=== PATIENT | female | born 1995 | race Caucasian/White ===

== ENCOUNTER 2021-08-28 11:56 | Emergency (ER) | payer BC, MEDICAID, SELFPAY ==
[2021-08-28 11:58] VITALS: BP 133/80; PULSE 110; RESP 16; TEMP 36.7; O2SAT 100; BMI 19.8
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
--- NOTE | 2021-08-28 12:15 | USR_ITS ---
PROCEDURE INFORMATION: Exam: US First Trimester, Transabdominal and US , Transvaginal Exam date and time: 08/28/2021 12:33 PM Age: 26 years old Clinical indication: complicated by abdominal or pelvic pain; Lower; First trimester (<14 weeks 0 days); Gestational age or lmp: 12w6d; ; Additional info: 12 wk US TECHNIQUE: Imaging protocol: Real-time transabdominal obstetrical ultrasound of the maternal pelvis and a first trimester , less than 14 weeks 0 days, with image documentation. Transvaginal imaging was used for better evaluation of the fetus, adnexa, and/or cervix. COMPARISON: US OB <= 14 weeks fetus [facility] 08/09/2021 2:18 PM FINDINGS: Gestation: Single live IUP. presentation: Breech presentation. Embryonic/ heart rate: 160 bpm. Extra-embryonic membranes/Placenta: Normal echotexture of the placenta. No evidence of abruption. No previa. Amniotic fluid: Amniotic fluid volume qualitatively normal. BIOMETRY: Gestational age (AUA): 12 weeks 6 days (DARLYN March 06, 2022) Sammy Martinez-Rump length (CRL): Sammy Martinez-rump length average 6.5 cm MATERNAL: Uterus: Unremarkable. Cervix: The cervix measures 3.7 cm in length and is closed. Right ovary/adnexa: Unremarkable ovary. Left ovary/adnexa: Unremarkable ovary. Intraperitoneal space: No intraperitoneal free fluid. US/US OB <= 14 weeks fetus [id number] IMPRESSION: Single live IUP with EGA 12 weeks 6 days, consistent with reported dates. No acute findings.
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
[2021-08-28 12:20] VITALS: BP 133/80; PULSE 115; RESP 16; O2SAT 100
[2021-08-28 12:47] VITALS: BP 133/80; PULSE 115; RESP 16; TEMP 36.7; O2SAT 100
[2021-08-28 12:58] LABS: Bilirubin Urine Neg (Negative); Blood Urine Neg (Negative); Glucose Urine UA Norm (Normal); Ketones Urine Negative (Negative); Nitrate Urine Positive (Negative); Protein Urine Neg (Negative); Urine Appearance Cloudy (CLEAR); Urine Color Yellow (Yellow); pH Urine 7 (5-7)
[2021-08-28 12:59] LABS: Add Urine Microscopic? YES; Leukocyte Esterase Urine 2+ (Negative); Urobilinogen Urine Norm (Negative)
[2021-08-28 13:00] LABS: Add Urine Culture? No; Bacteria Urine 4+ /hpf; Squamous Epithelial Cell Urine 25-40 /hpf (0-5); WBC Urine 25-40 /hpf (0-5)
[2021-08-28 13:30] LABS: Basophils # 0.1 10^3/uL (0.0-0.1); Basophils % 0.5 %; Eosinophils # 0.4 10^3/uL (0.0-0.8); Eosinophils % 4.1 %; Hemoglobin 11.3 g/dL (11.5-15.3); Lymphocytes # 2.5 10^3/uL (0.8-4.8); Lymphocytes % 27.1 %; Mean Corpuscular HGB Conc 32.3 g/dL (30.0-36.0); Mean Corpuscular Hemoglobin 30.1 pg (28.0-34.0); Mean Corpuscular Volume 93.3 fl (81-99); Mean Platelet Volume 9.6 fL (7.4-10.4); Monocytes # 0.5 10^3/uL (0.2-0.9); Monocytes % 4.9 %; Nucleated Red Blood Cells % 0 %; Platelet Count 233 10^3/cmm (130-400); Red Blood Count 3.75 10^6/uL (4.1-5.3); Red Cell Distribution Width 12.9 % (12.1-15.1); White Blood Count 9.2 10^3/uL (4.0-10.0)
[2021-08-28 13:52] LABS: Alanine Aminotransferase 9 U/L (0-33); Albumin Level 4.1 g/dL (3.5-5.2); Alkaline Phosphatase 39 IU/L (35-105); Anion Gap 13.6 (5-19); Aspartate Amino Transferase 15 U/L (0-32); Blood Urea Nitrogen 8 mg/dL (6-20); Calcium 9.1 mg/dL (8.5-10.5); Carbon Dioxide 23 mmol/L (22-29); Chloride 103 mmol/L (98-107); Globulin 2.7 g/dL (1.3-4.6); Glomerular Filtration Rate 271.1 mL/min (90-130); Glucose 80 mg/dL (65-115); Osmolality Calculated 279 mOsm/kg (285-295); Potassium 3.6 mmol/L (3.5-5.1); Sodium 136 mmol/L (136-145); Total Bilirubin 0.4 mg/dL (0.15-1.2); Total Protein 6.8 g/dL (6.6-8.7)
[2021-08-28 14:23] LABS: Add Urine Microscopic? YES; Bilirubin Urine Neg (Negative); Blood Urine Neg (Negative); Glucose Urine UA Norm (Normal); Ketones Urine 1+ (Negative); Leukocyte Esterase Urine Negative (Negative); Nitrate Urine Negative (Negative); Protein Urine Neg (Negative); Specific Gravity, Urine 1.015 (1.005-1.030); Sulfosalicylic Acid Urine Negative (Negative); Urine Appearance Cloudy (CLEAR); Urine Color Yellow (Yellow); Urobilinogen Urine Norm (Negative); pH Urine 8 (5-7)
[2021-08-28 14:25] LABS: Bacteria Urine 4+ /hpf; Mucus Urine TRACE /hpf; Squamous Epithelial Cell Urine RARE /hpf (0-5)
[2021-08-28 14:26] LABS: Add Urine Culture? Yes
[2021-08-28 15:14] VITALS: BP 133/80; PULSE 115; RESP 16; TEMP 36.7; O2SAT 100
== END 2021-08-28 15:15 | disposition home or self-care (01) ==
PROVIDERS: Emergency Provider Family Medicine; PCP Obstetrics & Gynecology
DX: Z04.1 Encounter for examination and observation following transport accident (principal); O26.892 Other specified pregnancy related conditions, second trimester; Z3A.12 12 weeks gestation of pregnancy
CPT/HCPCS: 51701; 70450; 71045; 72125; 76801; 80053; 81001; 85025; 87077; 87086; 87186; 99284

== ENCOUNTER → 2021-08-31 15:31 | Outpatient (BNVA) | payer BC, MEDICAID, SELFPAY | PROVIDERS: PCP Obstetrics & Gynecology; Visit Provider Obstetrics & Gynecology | DX: Z34.01 Encounter for supervision of normal first pregnancy, first trimester (principal); Z12.4 Encounter for screening for malignant neoplasm of cervix | CPT/HCPCS: 80307; 81000; 85027; 86592; 86762; 86803; 86850; 86900; 87077; 87086; 87184; 87340; 87491; 87591; 88175 ==

== ENCOUNTER → 2021-09-20 08:35 | Outpatient (BNVA) | payer BC, MEDICAID, SELFPAY | PROVIDERS: PCP Obstetrics & Gynecology; Visit Provider Obstetrics & Gynecology | DX: O98.819 Other maternal infectious and parasitic diseases complicating pregnancy, unspecified trimester (principal); B96.20 Unspecified Escherichia coli [E. coli] as the cause of diseases classified elsewhere; Z3A.00 Weeks of gestation of pregnancy not specified | CPT/HCPCS: 81000; 87086 ==

== ENCOUNTER → 2021-09-24 15:42 | Outpatient (BNVA) | payer BC, MEDICAID, SELFPAY | PROVIDERS: PCP Obstetrics & Gynecology; Visit Provider Social Worker | DX: F41.1 Generalized anxiety disorder (principal); F33.2 Major depressive disorder, recurrent severe without psychotic features | CPT/HCPCS: 90837 ==

== ENCOUNTER → 2021-10-08 15:50 | Outpatient (BNVA) | payer BC, MEDICAID, SELFPAY | PROVIDERS: PCP Obstetrics & Gynecology; Visit Provider Social Worker | DX: F41.1 Generalized anxiety disorder (principal); F33.2 Major depressive disorder, recurrent severe without psychotic features | CPT/HCPCS: 90834 ==

== ENCOUNTER → 2021-10-20 08:34 | Outpatient (BNVA) | payer BC, OTHER, SELFPAY | PROVIDERS: PCP Obstetrics & Gynecology; Visit Provider Obstetrics & Gynecology | DX: Z34.90 Encounter for supervision of normal pregnancy, unspecified, unspecified trimester (principal) | CPT/HCPCS: 76805 ==

== ENCOUNTER → 2021-10-22 08:20 | Outpatient (BNVA) | payer BC, MEDICAID, SELFPAY | PROVIDERS: PCP Obstetrics & Gynecology; Visit Provider Obstetrics & Gynecology | DX: Z34.90 Encounter for supervision of normal pregnancy, unspecified, unspecified trimester (principal) | CPT/HCPCS: 81000 ==

== ENCOUNTER → 2021-11-22 09:11 | Outpatient (BNVA) | payer BC, SELFPAY | PROVIDERS: PCP Obstetrics & Gynecology; Visit Provider Obstetrics & Gynecology | DX: Z34.82 Encounter for supervision of other normal pregnancy, second trimester (principal) | CPT/HCPCS: 81000; 82950 ==

== ENCOUNTER → 2021-11-29 10:49 | Outpatient (BNVA) | payer BC, MEDICAID, SELFPAY | PROVIDERS: PCP Obstetrics & Gynecology; Visit Provider Obstetrics & Gynecology | DX: Z36.2 Encounter for other antenatal screening follow-up (principal) | CPT/HCPCS: 76816 ==

== ENCOUNTER → 2022-01-10 13:23 | Outpatient (BNVA) | payer BC, SELFPAY | PROVIDERS: PCP Obstetrics & Gynecology; Visit Provider Obstetrics & Gynecology | DX: Z34.03 Encounter for supervision of normal first pregnancy, third trimester (principal); F12.11 Cannabis abuse, in remission | CPT/HCPCS: 80307; 81000; 85027 ==

== ENCOUNTER → 2022-01-28 13:42 | Outpatient (BNVA) | payer BC, SELFPAY | PROVIDERS: PCP Obstetrics & Gynecology; Visit Provider Nurse Practitioner Women's Health | DX: Z34.00 Encounter for supervision of normal first pregnancy, unspecified trimester (principal) | CPT/HCPCS: 80307; 81000 ==

== ENCOUNTER → 2022-02-07 13:23 | Outpatient (BNVA) | payer BC, SELFPAY | PROVIDERS: PCP Obstetrics & Gynecology; Visit Provider Obstetrics & Gynecology | DX: O99.019 Anemia complicating pregnancy, unspecified trimester (principal); D64.9 Anemia, unspecified; Z3A.00 Weeks of gestation of pregnancy not specified | CPT/HCPCS: 81000; 85025; 87081 ==

== ENCOUNTER → 2022-02-21 16:00 | Outpatient (BNVA) | payer BC, MEDICAID, SELFPAY | PROVIDERS: PCP Obstetrics & Gynecology; Visit Provider Obstetrics & Gynecology | DX: O99.019 Anemia complicating pregnancy, unspecified trimester (principal); D64.9 Anemia, unspecified; Z3A.00 Weeks of gestation of pregnancy not specified | CPT/HCPCS: 81000 ==

== ENCOUNTER → 2022-02-28 15:00 | Outpatient (BNVA) | payer BC, MEDICAID, SELFPAY | PROVIDERS: PCP Obstetrics & Gynecology; Visit Provider Obstetrics & Gynecology | DX: Z34.90 Encounter for supervision of normal pregnancy, unspecified, unspecified trimester (principal) | CPT/HCPCS: 81000 ==

== ENCOUNTER 2022-03-08 07:21 | Inpatient (IN) | payer BC, MEDICAID, SELFPAY ==
[2022-03-07] VITALS (38 sets, daily range): BP systolic 110–164; BP diastolic 60–90; PULSE 68–94; RESP 17–18; TEMP 36.6; O2SAT 98–100; BMI 24.9
[2022-03-07 18:25] LABS: Basophils % 0.4 %; Eosinophils # 0.1 10^3/uL (0.0-0.8); Hematocrit 31.3 % (37.0-47.0); Hemoglobin 9.8 g/dL (11.5-15.3); Lymphocytes # 1.7 10^3/uL (0.8-4.8); Lymphocytes % 16.3 %; Mean Corpuscular HGB Conc 31.3 g/dL (30.0-36.0); Mean Corpuscular Hemoglobin 27.2 pg (28.0-34.0); Mean Corpuscular Volume 86.9 fl (81-99); Mean Platelet Volume 12.8 fL (7.4-10.4); Monocytes # 0.4 10^3/uL (0.2-0.9); Neutrophils # 8.12 10^3/uL (1.8-7.7); Neutrophils % 77.5 %; Nucleated Red Blood Cells % 0 %; Platelet Count 203 10^3/cmm (130-400); Red Cell Distribution Width 13.8 % (12.1-15.1); White Blood Count 10.5 10^3/uL (4.0-10.0)
[2022-03-07] MEDS: dextrose 5%-lactated ringers 1,000 ML 125 ML IV (18:32)
[2022-03-07] MEDS: oxytocin 30 UNIT/500 ML BAG IV (18:32)
[2022-03-07] MEDS: acetaminophen 325 mg Tablet 650 MG PO (19:11)
[2022-03-07] MEDS: fentaNYL 50 mcg/mL INJ 2mL IVP ×2 (20:53→21:54)
[2022-03-07] MEDS: lactated ringers 1,000 ML 999 ML IV (22:07)
--- NOTE | 2022-03-07 23:10 | ANES.PREANE2 ---
Pre-Anesthetic Assessment Height/Weight: Height 1.73 m Weight 74.389 kg Pulse Resp BP Pulse Ox O2 Del Method 72 18 129/86 100 03/07/22 23:33 03/07/22 21:54 03/07/22 23:33 03/07/22 23:32 03/07/22 17:16 Preop Diagnosis: IUP epidural Familial anesthetic complications: none Was Beta Susan taken within 24 hours: N/A Was Clonidine taken within 24 hours: N/A Last Intake: 19:00 Social No alcohol and No tobacco Exam alert and oriented x 3 Airway Submandibular: within normal limits Cervical ROM: within normal limits Mallampati: Class II Dentition: full History/ROS No significant complaints Pulmonary None reported CV/HEM None reported None reported Hepatic None reported GI None reported Metabolic None reported Musc/skel None reported Neuropsych None reported Anesthetic Plan ASA status: 2 Anesthesia: Anesthesia Evaluation and Regional (specify below) Risk of > 500 ml blood loss (7ml/kg in children): No Medications/Allergies Home Medications Medication Instructions Recorded Confirmed Last Taken Type diphenhydramine HCl 25 mg capsule 25 mg PO .at hs PRN Sleep 08/31/21 03/07/22 Unknown History (Benadryl) prenat.vits,anthony,ebr-irpw-dclto 1 tab PO DAILY 08/31/21 03/07/22 Unknown History acetaminophen 325 mg tablet 650 mg PO QID PRN Pain 09/20/21 03/07/22 Unknown History (Tylenol) ferrous sulfate 325 mg (65 mg 325 mg PO BID #60 tabs 01/11/22 03/07/22 Unknown Rx iron) tablet,delayed release Allergies Allergy/AdvReac Type Severity Reaction Status Date / Time No Known Allergies Allergy Verified 03/07/22 19:55 Current Medications Generic Name Dose Route Start Last Admin Trade Name Freq PRN Reason Stop Dose Admin Acetaminophen 650 mg 03/07/22 17:38 03/07/22 19:11 Acetaminophen 325 Mg Tablet PO 650 mg Q6H PRN Administration Mild pain or temp > 100.4 Fentanyl 25 - 100 mcg 03/07/22 17:38 03/07/22 21:54 Fentanyl 50 Mcg/Ml Inj 2ml IVP 50 mcg Q1H PRN Administration SEVERE PAIN Lactated Ringer's 1,000 mls @ 999 mls/hr 03/07/22 17:38 03/07/22 22:07 Lactated Ringers IV 999 mls/hr .Q1H1M PRN Administration Per L&D Rescitation Protocol Dextrose/Lactated Ringer's 1,000 mls @ 125 mls/hr 03/07/22 17:45 03/07/22 18:32 Dextrose 5%-Lactated Ringers IV 125 mls/hr .Q8H [place] Administration Oxytocin 30 unit in 500 mls @ 1 mls/hr 03/07/22 17:45 03/07/22 20:45 Pitocin IV 5 milliunit/min .Q24H [place] 5 mls/hr Titration Protocol 1 MILLIUNIT/MIN Ropivacaine 200 mg in 100 mls @ 6 mls/hr 03/07/22 22:30 03/07/22 23:14 Naropin Premix EPIDURAL 13 mls/hr .[id number] [place] Administration Ondansetron HCl 4 mg 03/07/22 17:38 03/07/22 23:14 Ondansetron 2 Mg/Ml Sdv 2 Ml IVP 4 mg Q4H PRN Administration NAUSEA AND VOMITING PFSH Anesthesia Medical History (Updated 01/28/22 @ 13:33 by Sofie Bettencourt APN, GABI) Psychiatric care Surgical History (Updated 01/28/22 @ 13:33 by Sofie Bettencourt APN, GABI) H/O oral surgery wisdom teeth extraction Family History Grandfather Diabetes paternal Stroke maternal and paternal Father Hypertension Grandmother No problems noted. Mother Thyroid condition Denies family history of Colon cancer Ovarian cancer Clotting disorder Hyperlipidemia Breast cancer Anesthesia complication Bleeding disorder Uterine cancer Social History Smoking and tobacco status: former smoker Last alcohol use date: 04/16/21 Female Reproductive History : 2 Data Anesthesia 03/07/22 17:55 Short CBC 03/07/22 Range/Units 17:55 WBC 10.5 H (4.0-10.0) 10^3/uL Hgb 9.8 L (11.5-15.3) g/dL Hct 31.3 L (37.0-47.0) % MCV 86.9 (81-99) fl Plt Count 203 (130-400) 10^3/cmm Neut % (Auto) 77.5 % Neut # (Auto) 8.12 H (1.8-7.7) 10^3/uL Cardiac Studies: No Data to Display
[2022-03-07] MEDS: ondansetron 2 mg/ML SDV 2 mL 4 MG IVP (23:14)
[2022-03-07 23:22] LABS: Amphetamines Screen Urine Negative (Negative); Barbiturates Screen Urine Negative (Negative); Benzodiazepines Screen Urine Negative (Negative); Cocaine Screen Urine Negative (Negative); Opiate Screen Urine Negative (Negative); PCP Screen Urine Negative (Negative); THC Screen Urine Negative (Negative)
--- NOTE | 2022-03-07 23:36 | ANES.PROC ---
Anesthesia Procedures Procedure/Date: 03/07/22 epidural Epidural: Time Out Performed: Yes Consents Signed: Procedure Consent Consent: from patient, risks and benefits reviewed and patient agrees to proceed Lumbar Level: L3-L4 Epidural position: sitting Epidural procedure: sterile prep of area, 1% lidocaine to numb the area, 18 g needle, neg for paresthesia, test dose given, 1.5% xylocaine 1:200k epi, placed PCEA, no systemic response, L.U.D. no apparent complications and 0.2% Ropiavacaine @ mls/hr (13) Additional Comments: BRANDT at 4.5, taped at 15 at skin
[2022-03-08] VITALS (110 sets, daily range): BP systolic 106–151; BP diastolic 57–90; PULSE 64–136; RESP 16–18; TEMP 36.2–38.7; O2SAT 98
[2022-03-08] MEDS: benzocaine-menthol 78 gm Canister 1 SPRAY TOPICAL (02:31)
[2022-03-08] MEDS: dextrose 5%-lactated ringers 1,000 ML 125 ML IV (04:38)
--- NOTE | 2022-03-08 08:08 | PM.OPHPUD ---
Labor & Delivery H&P Update Date of Procedure: March 08, 2022 Date H&P Performed: 03/07/22 H&P update information: I have reviewed H&P completed within last 30 days, I have examined patient prior to procedure and No changes to prior documentation Admission Diagnosis: Preop diagnosis: IUP
[2022-03-08] MEDS: miSOPROStol 200 mcg Tablet 800 MCG PR (12:35)
[2022-03-08] MEDS: fentaNYL 50 mcg/mL INJ 2mL IVP (12:35)
--- NOTE | 2022-03-08 12:39 | PM.DELIVERY ---
Delivery Note: Date of delivery: March 08, 2022 Pre-delivery diagnoses: Term Post-delivery diagnoses: delivered Procedure: Spontaneous vaginal delivery Op report anesthesia: Epidural Delivering Physician: Nathan Dean MD Estimated blood loss (mL): 600 Delivery: The patient was noted to be complete and pushing, so was placed in the dorsal lithotomy position, prepped and draped in the usual sterile fashion for a vaginal delivery. Pt. Noted to have epidural anesthesia. At 1221 the patient delivered a viable 39 weeks male infant weighing 3405 g with scores of 8 and 9 at one and five minutes, respectively. The vertex was delivered spontaneously over intact perineum. The patient was asked to push and the head delivered spontaneously in the JOSE position, over an intact perineum. A nuchal cord was checked and none noted. The anterior shoulder delivered easily and the posterior shoulder followed. The remainder of the was easily delivered and the oropharynx and nasopharynx was bulb suctioned. The infant was noted to have spontaneous cry and spontaneous movement of all four extremities. The cord was clamped x 2 and cut and noted to have 2 arteries and one vein. The infant was passed to the mother's at the where nursing personnel were in attendance. Cord Blood sample was then obtained. The placenta delivered intact with manual extraction and the uterus was explored. 20 units of Pitocin was placed in the IV bag to firm the uterus. Then 800 mg of misoprostol were placed rectally. Examination of the cervix and vaginal vault did not reveal any lacerations. A vaginal pack was then placed. Examination of the perineum showed no laceration. The vaginal pack was then removed. The patient tolerated this procedure well, and recovered in L&D with her infant in their LDR room. All sponge and needle counts were correct. Post-Delivery Status: Good and stable History History History 2 Term 0 0 Miscarriages/Ectopic 1 Living Children 0 Coding Level of Care Code Acute Supervisor Coating for Chg Fwd
[2022-03-08] MEDS: HYDROcodone-acetaminophen 5-325 mg Tablet PO ×2 (13:35→21:57)
[2022-03-08] MEDS: ibuprofen 800 mg tablet PO ×2 (17:07→21:57)
[2022-03-08] MEDS: docusate sodium 100 mg Capsule PO (17:07)
[2022-03-09] VITALS (11 sets, daily range): BP systolic 114–134; BP diastolic 70–89; PULSE 75–105; RESP 16–18; TEMP 36.5–36.9; O2SAT 98–100
[2022-03-09 03:03] LABS: Hematocrit 24.9 % (37.0-47.0); Hemoglobin 7.7 g/dL (11.5-15.3); Mean Corpuscular HGB Conc 30.9 g/dL (30.0-36.0); Mean Corpuscular Hemoglobin 27.1 pg (28.0-34.0); Mean Corpuscular Volume 87.7 fl (81-99); Mean Platelet Volume 12.6 fL (7.4-10.4); Platelet Count 199 10^3/cmm (130-400); Red Blood Count 2.84 10^6/uL (4.1-5.3); Red Cell Distribution Width 14.3 % (12.1-15.1)
--- NOTE | 2022-03-09 08:07 | PM.OBGYDC ---
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 Soledad Mccallum 27-year-old female G2, P0 with an EGA at 39 weeks. Admitted to labor and delivery for induction but she was on early labor. Which was augmented with oxytocin and progressed to have a spontaneous vaginal delivery without complications. observation has been uneventful. Afebrile and hemodynamically stable day 1. Tolerating diet well. Ambulating without difficulty. Information Peripartum Data: Delivery Method: Vaginal Physical Exam Narrative: GA; alert and oriented x 3 HEENT: normal Breasts: engorged Nipples - skin intact Lungs; clear to auscultation Heart: regular rhythm, no murmurs. Abd: Appropriately tender. BS+. Uterine fundus below umbilicus. No Fundal Tenderness. Perineum: normal lochia. Extremities: no edema, no cyanosis, no tenderness. Urinary Catheter Management: Calderon: Cath Placed During This Visit: yes, but has since been removed by the nurse Reason for Continuing Indwelling Catheter: Decision to DC Catheter Urinary Catheter Date of Insertion: 03/08/22 Urinary Catheter Time of Insertion: 00:30 Date Urinary Catheter Removed: 03/08/22 Time Urinary Catheter Discontinued: 10:58 History History History 2 Term 0 0 Miscarriages/Ectopic 1 Living Children 0 Discharge Data Studies Completed and Pending Laboratory Results WBC 21.0 10^3/uL (4.0-10.0) H 03/09/22 02:45 RBC 2.84 10^6/uL (4.1-5.3) L 03/09/22 02:45 Hgb 7.7 g/dL (11.5-15.3) L 03/09/22 02:45 Hct 24.9 % (37.0-47.0) L 03/09/22 02:45 MCV 87.7 fl (81-99) 03/09/22 02:45 MCH 27.1 pg (28.0-34.0) L 03/09/22 02:45 MCHC 30.9 g/dL (30.0-36.0) 03/09/22 02:45 RDW 14.3 % (12.1-15.1) 03/09/22 02:45 Plt Count 199 10^3/cmm (130-400) 03/09/22 02:45 MPV 12.6 fL (7.4-10.4) H 03/09/22 02:45 Neut % (Auto) 77.5 % 03/07/22 17:55 Lymph % (Auto) 16.3 % 03/07/22 17:55 [place] % (Auto) 4.0 % 03/07/22 17:55 Eos % (Auto) 1.0 % 03/07/22 17:55 Baso % (Auto) 0.4 % 03/07/22 17:55 Neut # (Auto) 8.12 10^3/uL (1.8-7.7) H 03/07/22 17:55 Lymph # (Auto) 1.7 10^3/uL (0.8-4.8) 03/07/22 17:55 [place] # (Auto) 0.4 10^3/uL (0.2-0.9) 03/07/22 17:55 Eos # (Auto) 0.1 10^3/uL (0.0-0.8) 03/07/22 17:55 Baso # (Auto) 0.0 10^3/uL (0.0-0.1) 03/07/22 17:55 Nucleated RBC % (auto) 0 % 03/07/22 17:55 Nucleated RBCs # 0.0 /100WBC 03/07/22 17:55 Urine Opiates Screen Negative ng/mL (Negative) 03/07/22 23:00 Ur Barbiturates Screen Negative ng/mL (Negative) 03/07/22 23:00 Ur Phencyclidine Scrn Negative ng/mL (Negative) 03/07/22 23:00 Ur Amphetamines Screen Negative ng/mL (Negative) 03/07/22 23:00 U Benzodiazepines Scrn Negative ng/mL (Negative) 03/07/22 23:00 Urine Cocaine Screen Negative ng/mL (Negative) 03/07/22 23:00 U Marijuana (THC) Screen Negative ng/mL (Negative) 03/07/22 23:00 Vitals Last Vital Signs Temp 97.8 F 11/22/22 22:00 Pulse 101 H 03/09/22 04:50 Resp 16 03/09/22 04:50 BP 114/70 03/09/22 04:50 Pulse Ox 98 03/09/22 04:50 O2 Del Method 03/09/22 04:50 Discharge Plan Discharge Patient Disposition: Home Condition: Stable Prescriptions: New acetaminophen 325 mg capsule 325 mg PO Q4H PRN (Reason: fever or pain) Qty: 60 0RF docusate sodium [Colace] 100 mg capsule 100 mg PO BID Qty: 60 0RF ferrous sulfate [Iron (ferrous sulfate)] 325 mg (65 mg iron) tablet 325 mg PO BID Qty: 60 0RF ibuprofen 800 mg tablet 800 mg PO TID PRN (Reason: pain) Qty: 60 0RF Continued prenat.vits,anthony,zzd-[id number] Tablet 1 tab PO DAILY diphenhydramine HCl [Benadryl] 25 mg capsule 25 mg PO .at hs PRN (Reason: Sleep) Label Comments: 1-2 capsules at hs acetaminophen [Tylenol] 325 mg tablet 650 mg PO QID PRN (Reason: Pain) ferrous sulfate 325 mg (65 mg iron) tablet,delayed release (DR/EC) 325 mg PO BID Qty: 60 3RF Discharge Orders: Discharge Order (Routine); Ordered 03/09/22 Ordered By: Nathan Dean Referrals: Nathan Dean MD [Primary Care Provider] - 6 Weeks (* [facility] call [facility] first thing Monday or Monday morning to make your 6 week appointment) Discharge Diet: Advance as tolerated Discharge Activity: Limit activity as instructed Patient Instructions: Depression (DC), Bleeding (DC), Preeclampsia and Eclampsia After Delivery (GEN), OB Discharge Report, OB Food/Drug Interaction Guide, OB Home Care Instructions, OB Care at Home, Opioid Safety, OB Home Care, OB Proud Parent Packet, OB Vaginal Deliveries - [facility] Activity Restrictions/Additional Instructions: 1. Please call [facility] on next working day to make your appointment in 6 weeks. 2. Please stay home until you come back to the clinic on first post-operative check up. 3. Please follow instructions on your medications CAREFULLY. 4. If you have abdominal incision, do not cover it unless dressing is necessary because of drainage. OK to shower, but avoid bath. Leave steri-strips until they fall off. If they are still on one week after surgery, you may remove them. 5. If you had vaginal surgery or vaginal repair, Dr. Dean may instruct you to take SITZ bath. 6. Yellow, blood tinged odorous vaginal discharge is usually normal after hysterectomy or vaginal surgeries. 7. No sexual intercourse, tampons, or douches until you are completely released from the post-operative care. 8. Avoid constipation by eating right and maybe using some Metamucil or Milk of Magnesia. 9. All prescription refills are given during the working hours. Please do no wait till it runs out. Call the clinic at [phone] before your medication runs out. The clinic will get in touch with your doctor to prescribe medications if necessary. 10. Please remain within 40 mile radius from our hospital because emergencies do happen now and then during the post-operative period. 11. If you have stairs at home, take one step at a time slowly and minimize the number of trips. It helps to stay in one floor for the next few days. No lifting except what you can lift by one hand until you are released from the post-operative care. 12. Driving is discouraged until you are well healed. It may be 3-4 weeks before you feel strong enough to drive. You should be able to turn and look through the rear window without pain and you should be able to push the brake pedal very hard without pain before you drive. No fast rules, but SAFETY should be your primary concern. DO NOT drive if you are on sedating medications such as narcotics. 13. Call the clinic (during working hours) to make urgent appointment or go to the Emergency room, if any of the following occurs: i. Vaginal bleeding becomes heavy, more than a period. ii. Incision becomes red and sore, or drains pus. iii. Your temperature is over 100.4 or you have chill. iv. IV site becomes red and swollen (a little ``knot?? is usually OK) v. Persistent nausea and vomiting vi. Persistent constipation or diarrhea vii. Rash or allergic reaction to medications. Discharge Attestations AUTOMOBILE MECHANIC SUPERVISOR Time Spent in Discharge Care*: greater than 30 min Coding Level of Care Code Acute Bilingual Sales Representative for g Colin
[2022-03-09] MEDS: prenatal vitamin Capsule 1 CAP PO (10:17)
[2022-03-09] MEDS: ibuprofen 800 mg tablet PO ×2 (10:17→14:24)
[2022-03-09] MEDS: docusate sodium 100 mg Capsule PO (10:17)
[2022-03-09] MEDS: HYDROcodone-acetaminophen 5-325 mg Tablet PO (11:45)
--- NOTE | 2022-03-09 14:05 | ANE.PACU2 ---
Inpatient post-anesthesia follow up: Airway intact: Yes Vital signs: Temperature 98.0 F Pulse Rate 75 Respiratory Rate 17 Blood Pressure 126/78 Pulse Oximetry 99 Oxygen Delivery Me thod Room Air Oxygen Flow Rate Fraction of Inspir ed Oxygen Hydration adequate: Yes Nausea and vomiting: No Pain level: 2 Mental status: Baseline
[2022-03-09 19:07] LABS: Hematocrit 31.4 % (37.0-47.0); Mean Corpuscular HGB Conc 31.8 g/dL (30.0-36.0); Mean Corpuscular Hemoglobin 27.7 pg (28.0-34.0); Mean Platelet Volume 11.7 fL (7.4-10.4); Platelet Count 235 10^3/cmm (130-400); Red Blood Count 3.61 10^6/uL (4.1-5.3); Red Cell Distribution Width 14.2 % (12.1-15.1); White Blood Count 18.5 10^3/uL (4.0-10.0)
== END 2022-03-09 20:58 | disposition home or self-care (01) | DRG 806 ==
LOC: OPOB 07:21 → OBGYN 07:21
PROVIDERS: Admitting Provider Obstetrics & Gynecology; PCP Obstetrics & Gynecology; Visit Provider Obstetrics & Gynecology
DX: O99.02 Anemia complicating childbirth (principal); O99.324 Drug use complicating childbirth; Z37.0 Single live birth; D64.9 Anemia, unspecified; O99.344 Other mental disorders complicating childbirth; F12.91 Cannabis use, unspecified, in remission; Z3A.39 39 weeks gestation of pregnancy; F41.8 Other specified anxiety disorders
CPT/HCPCS: 36415; 36430; 51702; 59025; 59409; 80306; 81000; 85025; 85027; 86850; 86900; 86920; 87086; 96374; 96376; J2405; J2590; J2795; J3010; J3490; J7120; J7121; P9016

== ENCOUNTER 2024-01-12 11:34 | Emergency (ER) | payer SELFPAY ==
--- NOTE | 2024-01-12 11:42 | ECG_ITS ---
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 Measurements Intervals [place] Rate: 99 P: 80 MS: 169 QRS: 81 QRSD: 84 T: 36 QT: 338 QTc: 435 Interpretive Statements SINUS RHYTHM POSSIBLE LEFT ATRIAL ENLARGEMENT [-0.1mV P-WAVE IN V1/V2] No previous ECG available for comparison Electronically Signed On 01-12-2024 20:18:47 CDT by Maryann Sanders M.D. [id number]
--- NOTE | 2024-01-12 11:42 | XR_ITS ---
WS: [id number] Portable AP upright chest, 01/12/2024 Clinical Data: chest pain Comparison: Portable chest, 08/28/2021 Findings: No nodules, masses or effusions are seen. The heart is normal. The pulmonary vascularity is not increased. No pneumonia or pneumothorax is seen. XR/XR chest 1V portable [id number] Impression: Negative chest.
[2024-01-12 11:49] VITALS: BP 122/78; PULSE 96; RESP 18; TEMP 36.8; O2SAT 98; BMI 20.3
[2024-01-12 13:00] LABS: Basophils % 0.4 %; Eosinophils # 0.1 10^3/uL (0.0-0.8); Eosinophils % 1.2 %; Hematocrit 37.6 % (36-47); Lymphocytes # 2.2 10^3/uL (0.8-4.8); Lymphocytes % 24.4 %; Mean Corpuscular Hemoglobin 31.2 pg (27-33); Mean Corpuscular Volume 94.7 fl (85-98); Mean Platelet Volume 10.1 fL (7.4-10.4); Monocytes # 0.4 10^3/uL (0.2-0.9); Monocytes % 4.5 %; Neutrophils # 6.25 10^3/uL (1.8-7.7); Neutrophils % 69.1 %; Nucleated Red Blood Cells % 0 %; Platelet Count 225 10^3/cmm (157-399); Red Blood Count 3.97 10^6/uL (3.85-5.65); Red Cell Distribution Width 12.8 % (12.1-15.1); White Blood Count 9.06 10^3/uL (3.29-11.43)
[2024-01-12 13:03] VITALS: BP 118/69; PULSE 85; RESP 16; O2SAT 100
--- NOTE | 2024-01-12 13:08 | ED_ITS ---
HPI - Chest Pain 2 General: Chief Complaint: Chest Pain Stated Complaint: Chest pain, Sob Time Seen by Provider: 01/12/24 12:48 Source: patient Mode of arrival: ambulatory Limitations: no limitations History of Present Illness: Patient is a 28-year-old female who presents to ED today along with her for evaluation of chest pain, shortness of breath, and palpitations. She states over the past 2 to 3 weeks she has been having episodes of substernal chest pain and palpitations. She feels like something is sitting on her chest. She will intermittently feel like her hands go numb. She was reportedly seen at the walk-in clinic and referred to the emergency department due to something abnormal on my EKG . Patient has no known cardiac or pulmonary history. She has no leg pain or swelling or calf pain. No risk factors for PE. Denies drug or alcohol use apart from marijuana. She does have a history of anxiety. MD complaint: chest pain Onset (ago): week(s) Timing of current episode: episodic Onset: during rest Pain location: substernal Severity: moderate Quality: tightness and heaviness Relieving factors: nothing Exacerbating factors: nothing Associated symptoms: Reports dyspnea and palpitations; Deny abdominal pain, fever(s), nausea, syncope or vomiting Treatment prior to arrival: none Risk Factors: Coronary artery disease risk factors: none Thoracic aortic dissection risk factors: none Related Data Previous Rx's Medication Instructions Recorded propranolol 10 mg tablet 10 mg PO BID #60 tabs 01/12/24 Allergies Allergy/AdvReac Type Severity Reaction Status Date / Time No Known Allergies Allergy Verified 01/12/24 12:02 Review of Systems 2 Const: Denies: fever(s), chills, body aches, fatigue or malaise Eyes: Denies: change in vision or blurry vision Card: Reports: chest pain and palpitations; Denies: irregular heart rhythm, edema, swelling of feet/ankles, syncope, pre- syncope, dyspnea on exertion, orthopnea, leg pain with exertion or acrocyanosis Resp: Reports: dyspnea; Denies: productive cough, non-productive cough, wheezing, stridor, pain on inspiration, hemoptysis or chest congestion GI: Denies: abdominal pain, nausea, vomiting or diarrhea : Denies: flank pain, difficulty voiding, dysuria, urinary frequency, urinary urgency or urinary hesitancy Musc: Denies: neck pain, back pain, extremity pain, extremity swelling, joint pain or joint swelling Neuro: Reports: numbness in extremities (sometimes feel like her hands go numb); Denies: headache(s), weakness in extremities, lack of coordination, difficulty walking, frequent falls, dizziness or confusion Psych: Reports: anxiety; Denies: suicidal ideation or homicidal ideation PFSH ED 2 PFSH: Medical History Psychiatric care Surgical History H/O oral surgery wisdom teeth extraction Family History Grandfather Diabetes paternal Stroke maternal and paternal Father Hypertension Grandmother No problems noted. Mother Thyroid disease Denies family history of Colon cancer Ovarian cancer Clotting disorder Hyperlipidemia Breast cancer Anesthesia complication Bleeding disorder Uterine cancer Social History Smoking and tobacco/nicotine status: current every day tobacco/nicotine user Substance/Drug Use: former Female Reproductive History: Date of last menstrual period: 01/12/24 Physical Exam 2 Const: COMMON NORMALS: no acute distress, average body habitus, patient oriented x3, no limitations, healthy appearing, alert and well nourished G ENERAL APPEARANCE: cooperative ORIENTATION/CONSCIOUSNESS: Yes awake, Yes oriented to person, Yes oriented to place and Yes oriented to time Neck/C-Spine: COMMON NORMALS: no JVD Chest: COMMONS NORMALS: normal inspection of the chest and normal palpation of entire chest wall Resp: COMMON NORMALS: normal respiratory effort and clear to auscultation bilaterally AUSCULTATION: clear to auscultation bilaterally Cardio: COMMON NORMALS: no JVD, regular rate and regular rhythm RATE: r egular rate RHYTHM: regular rhythm GI: COMMON NORMALS: Normal to inspection, nondistended, normoactive bowel sounds present, Soft to palpation and non-tender PALPATION: Yes Soft to palpation Extremity: COMMON NORMALS: no clubbing, cyanosis or edema, no calf tenderness and no pedal edema GENERAL: Yes normal exam except as noted Neuro: COMMON NORMALS: patient oriented x3, moves all extremities, no focal motor deficits, no sensory deficits noted and gait normal S ENSORIUM/ORIENTATION: Yes alert, Yes oriented to person, Yes oriented to place and Yes oriented to time Skin: COMMON NORMALS: no rashes or lesions noted GENERAL SKIN EXAM: no rashes or lesions noted Course 2 Vital Signs: Vital signs: Vital Signs Temperature 98.3 F 01/12/24 11:49 Pulse Rate 85 01/12/24 13:03 Respiratory Rate 16 01/12/24 13:03 Blood Pressure 118/69 01/12/24 13:03 Pulse Oximetry 100 01/12/24 13:03 Oxygen Delivery Me thod Room Air 01/12/24 13:03 MDM - Chest Pain Medical Decision Making Patient's ED workup is unremarkable. Her vital signs are stable. Blood work is unremarkable. This included baseline troponin and D-dimer. Her EKG is nonischemic. CXR is negative. She is allowed discharge. Suspect symptoms could be related to anxiety. She states at one point she believes she was on propranolol for anxiety symptoms and is agreeable to start this today. She does not wish to start any type of anxiety/SSRI medication. Will have case management set her up with a primary care provider. Return to ED precautions given. Medical Records I reviewed the patient's medical records. Lab Data I reviewed the patient's lab results. 01/12/24 11:51 01/12/24 11:51 Radiology Impressions Chest X-Ray 01/12/24 11:42 Impression: Negative chest. Laboratory Results WBC 9.06 10^3/uL (3.29-11.43) 01/12/24 11:51 RBC 3.97 10^6/uL (3.85-5.65) 01/12/24 11:51 Hgb 12.40 g/dL (11.27-16.99) 01/12/24 11:51 Hct 37.6 % (36-47) 01/12/24 11:51 MCV 94.7 fl (85-98) 01/12/24 11:51 MCH 31.2 pg (27-33) 01/12/24 11:51 MCHC 33.0 g/dL (30-55) 01/12/24 11:51 RDW 12.8 % (12.1-15.1) 01/12/24 11:51 Plt Count 225 10^3/cmm (157-399) 01/12/24 11:51 MPV 10.1 fL (7.4-10.4) 01/12/24 11:51 Neut % (Auto) 69.1 % 01/12/24 11:51 Lymph % (Auto) 24.4 % 01/12/24 11:51 [place] % (Auto) 4.5 % 01/12/24 11:51 Eos % (Auto) 1.2 % 01/12/24 11:51 Baso % (Auto) 0.4 % 01/12/24 11:51 Neut # (Auto) 6.25 10^3/uL (1.8-7.7) 01/12/24 11:51 Lymph # (Auto) 2.2 10^3/uL (0.8-4.8) 01/12/24 11:51 [place] # (Auto) 0.4 10^3/uL (0.2-0.9) 01/12/24 11:51 Eos # (Auto) 0.1 10^3/uL (0.0-0.8) 01/12/24 11:51 Baso # (Auto) 0.0 10^3/uL (0.0-0.1) 01/12/24 11:51 Nucleated RBC % (auto) 0 % 01/12/24 11:51 Nucleated RBCs # 0.0 /100WBC 01/12/24 11:51 D-Dimer 0.39 ug/mLFEU (0-0.59) 01/12/24 11:51 Sodium 139 mmol/L (136-145) 01/12/24 11:51 Potassium 3.7 mmol/L (3.5-5.1) 01/12/24 11:51 Chloride 103 mmol/L (98-107) 01/12/24 11:51 Carbon Dioxide 26 mmol/L (22-29) 01/12/24 11:51 Anion Gap 13.7 (5-19) 01/12/24 11:51 BUN 11 mg/dL (6-20) 01/12/24 11:51 Creatinine 0.5 mg/dL (0.5-0.9) 01/12/24 11:51 GFR Calculation 148.0 mL/min (90-130) H 01/12/24 11:51 Glucose 84 mg/dL (65-115) 01/12/24 11:51 Calculated Osmolality 287 mOsm/kg (285-295) 01/12/24 11:51 Calcium 9.2 mg/dL (8.5-10.5) 01/12/24 11:51 Total Bilirubin 0.3 mg/dL (0.15-1.2) 01/12/24 11:51 AST 16 U/L (0-32) 01/12/24 11:51 ALT 9 U/L (0-33) 01/12/24 11:51 Alkaline Phosphatase 63 U/L (35-105) 01/12/24 11:51 Troponin T Baseline < 6 ng/L (0-10) 01/12/24 11:51 Total Protein 7.8 g/dL (6.6-8.7) 01/12/24 11:51 Albumin 4.5 g/dL (3.5-5.2) 01/12/24 11:51 Globulin 3.3 g/dL (1.3-4.6) 01/12/24 11:51 TSH 1.15 uIU/mL (0.27-4.20) 01/12/24 11:51 HCG, Qual Negative (Negative) 01/12/24 11:51 All radiology interpretation(s) finalized by discharge Discharge Plan Discharge Patient Disposition: Home Clinical Impression: Palpitations, Non-cardiac chest pain Condition: Stable Prescriptions: New propranolol 10 mg tablet 10 mg PO BID Qty: 60 0RF Discharge Orders: Discharge ED (Routine); Ordered 01/12/24 Ordered By: Annie Rea Referrals: Nathan Dean MD [Primary Care Provider] - Activity Restrictions/Additional Instructions: As we discussed, we will start you on propranolol to see if this helps with your symptoms. As we discussed, this technically is a blood pressure medication and potentially can lower your blood pressure. You need to discontinue medication if blood pressures drop below 110/70 and/or accompanied by lightheadedness/dizziness/passing out episodes. Please follow-up with primary care for further evaluation of your symptoms. Coding Level of Care Code ED Resistor Winder for Yovana Shaw
[2024-01-12 13:24] LABS: D Dimer 0.39 ug/mLFEU (0-0.59)
[2024-01-12 13:31] LABS: Troponin(5th) Baseline < 6 ng/L (0-10)
[2024-01-12 13:40] LABS: Alanine Aminotransferase 9 U/L (0-33); Albumin Level 4.5 g/dL (3.5-5.2); Alkaline Phosphatase 63 U/L (35-105); Anion Gap 13.7 (5-19); Aspartate Amino Transferase 16 U/L (0-32); Blood Urea Nitrogen 11 mg/dL (6-20); Calcium 9.2 mg/dL (8.5-10.5); Carbon Dioxide 26 mmol/L (22-29); Chloride 103 mmol/L (98-107); Creatinine Clr Calc Pharmacy 161.5422; Globulin 3.3 g/dL (1.3-4.6); Glucose 84 mg/dL (65-115); Osmolality Calculated 287 mOsm/kg (285-295); Potassium 3.7 mmol/L (3.5-5.1); Sodium 139 mmol/L (136-145); Thyroid Stimulating Hormone 1.15 uIU/mL (0.27-4.20); Total Bilirubin 0.3 mg/dL (0.15-1.2); Total Protein 7.8 g/dL (6.6-8.7)
[2024-01-12 14:04] LABS: HCG, Serum Qual Negative (Negative)
[2024-01-12 14:11] LABS: Troponin 5 2HR Delta 0.00001 ABS# (0-10)
[2024-01-12 14:28] VITALS: BP 118/69; PULSE 73; O2SAT 98
--- NOTE | 2024-01-15 08:12 | DCPLANNER ---
messaged [facility] for er f/u
== END 2024-01-12 14:28 | disposition home or self-care (01) ==
PROVIDERS: Emergency Medicine; Emergency Provider Physician Assistant; PCP Obstetrics & Gynecology
DX: R00.2 Palpitations (principal); R07.89 Other chest pain; Z72.0 Tobacco use
CPT/HCPCS: 36415; 71045; 80053; 84443; 84484; 84703; 85025; 85378; 93005; 99285